=== PATIENT | female | born 1940 | race Two or more races ===

== ENCOUNTER 2019-12-28 11:00 | Outpatient (CLI) | payer OTHER ==
[~2019-12-28 11:00] MED LIST: AMLODIPINE BESYL5 MG PO; ARICEPT5 MG PO; ATENOLOL25 MG PO; ATENOLOL50 MG; AVAPRO150 MG PO; AVAPRO300 MG PO; GLUCOPHAGE XR500 MG PO; MAVIK1 MG; METFORMIN HCL500 MG; NAPR500T14 PO; NORVASC5 MG PO; PERCOCET 5-3251 EACH PO; SEPTRA DS TABLE1 TAB PO; TRAMADOL HCL50 MG PO; TRENTAL; [UNRECOGNIZED DRUG - OTHER]
== END 2019-12-28 11:05 | disposition home or self-care (01) ==
LOC: SONOGRAMA 11:00
PROVIDERS: ATTEND Pathology Anatomic Pathology & Clinical Pathology
DX: E04.1 Nontoxic single thyroid nodule (principal)

== ENCOUNTER 2020-09-16 17:09 | Emergency (ER) | payer OTHER ==
[~2020-09-16] VITALS: Ht 154.9 cm; Wt 58.1 kg
== END 2020-09-16 20:19 | disposition home or self-care (01) ==
LOC: ER 17:09
DX: K57.30 Diverticulosis of large intestine without perforation or abscess without bleeding (principal); R10.32 Left lower quadrant pain

== ENCOUNTER 2021-03-11 08:40 | Outpatient (CLI) | payer OTHER | END 2021-03-11 08:50 | disposition home or self-care (01) | LOC: TOM 08:40 | PROVIDERS: ATTEND Internal Medicine Gastroenterology | DX: K59.09 Other constipation (principal) ==

== ENCOUNTER 2021-09-24 03:59 | Emergency (ER) | payer OTHER ==
[~2021-09-24] VITALS: Ht 162.6 cm; Wt 81.6 kg
[2021-09-24] MEDS ORDERED: XOPENEX0.63 MG/3 IH (08:11)
[2021-09-24] MEDS ORDERED: ZYNCOF 20-400120 ML PO ×2 (08:11)
== END 2021-09-24 09:19 ==
LOC: ER 03:59
DX: R05.9 Cough, unspecified (principal); I10 Essential (primary) hypertension

== ENCOUNTER 2022-11-03 13:39 | Outpatient (CLI) | payer OTHER ==
[~2022-11-03 13:39] MED LIST changes: +XOPENEX0.63 MG/3 IH; +ZYNCOF 20-400120 ML PO
== END 2022-11-03 13:49 | disposition home or self-care (01) ==
LOC: SONOGRAMA 13:39
PROVIDERS: ATTEND Internal Medicine
DX: E04.2 Nontoxic multinodular goiter (principal)

== ENCOUNTER 2023-04-17 07:12 | Emergency (ER) | payer OTHER ==
[~2023-04-17] VITALS: Ht 152.4 cm; Wt 57.2 kg
== END 2023-04-17 07:50 | disposition home or self-care (01) ==
LOC: ER
DX: K64.4 Residual hemorrhoidal skin tags (principal)

== ENCOUNTER 2023-05-20 07:55 | Outpatient (CLI) | payer OTHER | END 2023-05-20 08:03 | disposition home or self-care (01) | LOC: TOM 07:55 | PROVIDERS: ATTEND Internal Medicine Gastroenterology | DX: K59.00 Constipation, unspecified (principal) ==